=== PATIENT | male | born 1965 | race Caucasian/White ===

== ENCOUNTER 2016-12-15 15:11 | Emergency (ER) | payer OTHER ==
--- NOTE | ~2016-12-15 | CR94 ---
[facility] A Service of [facility] & [facility] RADIOLOGY TEXT RESULTS PATIENT: MIGUEL CULVER LOCATION: CFTX : 67 UNIT #: [id number] AGE: [address]: Lauryn Peraza SEX: M ORDER DR: [id number] [facility] [address] [place], [place] [address] [id number] MR#: [id number] Acc #: [id number] NAME: MIGUEL CULVER : 1965 SEX: M STUDY DATE/TIME: 12/15/2016 15:42 UNIT: CFTX ROOM: STUDY DESCRIPTION: CR Elbow Min 3 Views Rt Attending Physician: Lauryn Peraza Pa-C Ordering Physician: Ed Lito Villanueva M.D. Primary Care Physician: Primary Care Physician No MEDICAL IMAGING REPORT This report is preliminary unless electronic signature is present EXAM Right elbow. INDICATIONS Posterior elbow pain and laceration after a fall today. FINDINGS Three views of the elbow were obtained. Soft tissue injury is noted over the olecranon. There is a small olecranon spur, and there is some spurring about the coronoid process at the ulna. No acute fracture or joint effusion is seen. There is some degenerative spurring about the lateral epicondyle of the distal humerus. IMPRESSION Soft tissue injury over the olecranon. No acute fracture or malalignment. No joint effusion. Dictated by... Kuldip Starks Jr., M.D. THIS IS AN ELECTRONICALLY VERIFIED REPORT Kuldip Starks Jr., M.D. at 12/16/2016 7:10 AM LIDA/shirley TD: 12/15/2016 20:33 JOB #: [id number] MEDICAL IMAGING REPORT Page 1 of 1 COPY
== END 2016-12-15 16:28 | disposition home or self-care (01) ==
LOC: CFTX 15:11 → CED 15:11 → CFTX 16:01
DX: S51.011A Laceration without foreign body of right elbow, initial encounter (principal); F17.200 Nicotine dependence, unspecified, uncomplicated; X58.XXXA Exposure to other specified factors, initial encounter; Y92.9 Unspecified place or not applicable
CPT/HCPCS: 12001; 73080; 99283